=== PATIENT | female | born 2000 | race Hispanic/Latino ===

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

== ENCOUNTER 2018-07-06 20:47 | Emergency (ER) | payer OTHER ==
[~2018-07-06] VITALS: Ht 149.9 cm; Wt 49.9 kg
--- OUTSIDE RECORDS SUMMARY | ~2018-07-06 | XMS ---
Demographics + + + | Address | [address] | | | [place] [address] | + + + | Home Phone | | + + + | Preferred Language | Unknown | + + + | Marital Status | Never | + + + | Christian Affiliation | Unknown | + + + | Race | Other Race | + + + | Ethnic Group | or | + + + Author + + + | Author | [facility] | + + + | Organization | [facility] | + + + | Address | [facility] [address] | | | [place] [address] | + + + | Phone | | + + + Care Team Providers + + + + | Care Room Service Associate Name | Role | Phone | + + + + | Luzma López PCP | | + + + + | Lizette Hawkins | PreferredProvider | | + + + + Allergies and Adverse Reactions + + +-------+ | Name | Reaction | Notes | + + +-------+ | NO KNOWN DRUG ALLERGIES | | | + + +-------+ Plan of Treatment Not available. Medications +--------+ | Active | +--------+ + [...] | | -Soco, | | | | Bon | + [...] + + | 12/11/2016 12:00 AM | CT HEAD/BRAIN W/DYE | Reviewed | + + + + [...] | | | 999 | | | 2007 | Enter | | Enter [...] | Right | 04/30/ | 06/24/ | | | | 2014 | & | [...] | | [place] | [place] | | [id number] | | N/A | | | Healthcare | Healthcare | | 90 | | | + + + +--------+ +---------+ + | | NTCA | NTCA | | [id number] | | Wednesday, | | | Benefits | | | | | March | | | | | | | | 2011 | + + + +--------+ +---------+ + | | NTCA | NTCA | | [id number] | | N/A | | | Benefits | | | 90 | | | + + + +--------+ +---------+ + | | [place] | [place] | | [id number] | | N/A | | | Health | Value | | 90 | | | | | Care | | | | | | + + + +--------+ +---------+ + History of Encounters + + + + | Visit Date | Visit Type | Provider | + + + + | 12/11/2016 | Day Appt | | + + + + | 12/11/2016 | Day Appt | Luzma IZQUIERDO | + + + + | 06/16/2016 [...]
--- OUTSIDE RECORDS SUMMARY | ~2018-07-06 | XMS ---
Demographics + + + | Address | [address] | | | [place] [address] | + + + | Home Phone [...] | + + + | Address | [facility] [address] | | | [place] [address] | + + + | Phone | | + + + Care Team Providers + + + + | Care Trailer Assembler Name | Role | Phone | + + + + | Ciera Vergara PCP | | + + + + | Lizette Hawkins | Tiasafelizabeth | | + + + + Allergies and Adverse Reactions + + + + | Name | Reaction | Notes | + + + + | NO KNOWN DRUG ALLERGIES | | | + + + + | No Known Food or | | - Sara 01/11/2017 | | Environmental Allergies | | | + + + + Plan of Treatment + + + + + + | Planned | Comments | Planned Date | Planned Time | Plan/Goal | | Activity | | | | | + + + + + + | Urine culture | | 05/10/2017 | 12:00 AM | | | and sensitivity | | | | | + + [...] + + + + + + | Augmentin | 05/10/2017 | 05/20/2017 | take 1 tablet | | | 875-125 mg oral | | | by oral route | | | tablet | | | every 12 hours | | | | | | for 10 days | | + + + + + + +---------+ | | +---------+ + + + + + + | Name | Start Date | Expiration Date | SIG | Comments | + + + + + + | Bactrim DS | 04/21/2017 | 05/01/2017 | take 1 tablet | | | 800-160 mg oral | | | by oral route | | | tablet | | | every 12 hours | | | | | | for 10 days | | + + + + + [...] | | e | | +-----+-----+-----+-----+-----+-----+-----+-----+-----+----+-----+-----+-----+-----+ | 4/2 | 1:4 | | | 72 | 24 | 97. | 101 | | | | | | | | /20 | 8:0 | | | bpm | rpm | 8 F | .75 | | | | | | | | 18 | 0 | | | | | | | | | | | | | | | PM | | | | | | lbs | | | | | | | +-----+-----+-----+-----+-----+-----+-----+-----+-----+----+-----+-----+-----+-----+ | 3/1 | 2:1 | 106 | 68 | 72 | 18 | 98. | 100 | 58. | | 20. | 1.3 | 39. | | | 4/2 | 5:0 | | mmH | bpm | rpm | 1 F | | 4 | | 61 | 7 | 6 % | | | 018 | 0 | mmH | g | | | | lbs | in | | kg/ | m2 | | | | | PM | g | | | | | | | | m2 | | | | +-----+-----+-----+-----+-----+-----+-----+-----+-----+----+-----+-----+-----+-----+ | 12/ | 10: | 102 | 60 | 84 | 16 | 97. | 101 | 58. | | 20. | 1.3 | 45. | 99 | | 5/2 | 46: | | mmH | bpm | rpm | 8 F | | 2 | | 964 | 716 | 5 % | % | | 017 | 00 | mmH | g | | | | lbs | in | | | | | | | | AM | g | | | | | | | | kg/ | m | | | | | | | | | | | | | | m | | | | +-----+-----+-----+-----+-----+-----+-----+-----+-----+----+-----+-----+-----+-----+ | 11/ | 10: [...] | | + + + + | Exercises 1-3 times a week | | - Sara 01/11/2017 | + + + + | In High School | | - [employer] 01/11/2017 | + + + + | Lives [...] Reviewed | + + + + | 01/12/2017 10:59 AM | URINALYSIS NONAUTO W/O | Reviewed | | | SCOPE | | + + + + | 01/12/2017 12:00 AM | URINE BACTERIA CULTURE | Reviewed | + + + + | 04/21/2017 10:47 AM | URINALYSIS NONAUTO W/O | Reviewed | | | SCOPE | | + + + + | 04/21/2017 12:00 AM | URINE BACTERIA CULTURE | Reviewed | + + + + | 05/10/2017 1:50 PM | URINALYSIS NONAUTO W/O | Reviewed | | | SCOPE | | + + + + Results Summary + + + | Date and Description | Results | + + + | 12/31/2016 12:58 PM | Hospital/ER/Urgent Care Diagnosis | | | headaches,fever Hospital/ER/Urgent Care | | | Treatment pyelonephritis | + + + | 01/12/2017 10:59 AM | Glucose. Negative Bilirubin. Negative | | | Ketones Negative Spec Grav 1.020 PH 6.0 | | | Protein Negative Urobilinogen 0.2 Nitrites | | | Negative Leukocyte Est Negative Urine | | | Color yellow Blood Trace, non-hemolyzed | + + + | 01/12/2017 11:03 AM | RESULT #1 01/13/2017 10:07 AM RESULT #1 No | | | growth after overnight incubation. RESULT | | | #2 01/14/2017 08:15 AM RESULT #2 No | | | growth after further incubation. | + + + | 04/21/2017 2:18 PM | Glucose. Negative Bilirubin. Negative | | | Ketones Negative Spec Grav 1.020 PH 7.0 | | | Protein 30+ Urobilinogen 0.2 Nitrites | | | Negative Leukocyte Est Trace Urine Color | | | dark yellow Blood Large 3+ | + + + History Of Immunizations +-------+-------+-------+------+-------+-------+-------+-------+-------+-------+-----+ | Name | [...] Not | Not | 0 | | 141 | | 3+ | [...] | 03/30/ | sanof | PMC | MENAC | [id number] | Intra | Right | 03/30/ | 03/07/ | 136 | | tra | 2011 | i | | TRA | AAA | muscu | | 2011 [...] | 05/07/ | sanof | PMC | MENAC | [id number] | Intra | Right | 05/07/ | 11/21 | 136 | | tra | 2015 | i | | TRA | AA | muscu | Arm | [...] | muscu | Arm | 2015 | 2015 | | | | | [...] | | + + + + | Michael, trunk, three | Mar 30 2011 8:55AM | | + + + + | Well Child Check | Jul 10 2011 8:52AM | | + + + + | Vision Screening | Jul 10 2011 8:52AM | | + + + + | Urinary tract infection | | - [employer]reesia 01/11/2017 | + + + + | Well [...] | | + + + + | Pyelonephritis, acute | Jan 12 2017 10:38AM | | | symptoms resolved | | | + + + + | Urinary Urgency | Apr 21 2017 10:45AM | | + + + + | Dysuria | Apr 21 2017 10:45AM | | + + + + | Urinary Tract Infection | May 10 2017 1:46PM | | + + + + Payers [...] | | United | [place] | | [id number] | | N/A | | | Healthcare | Healthcare | | 76 | | | + + + +--------+ +---------+ + | | NTCA | NTCA | | [id number] | | Wednesday, | | | Benefits | | | | | March | | | | | | | | 2011 | + + + +--------+ +---------+ + | | NTCA | NTCA | | [id number] | | N/A | | | Benefits | | | 90 | | | + + + +--------+ +---------+ + | | [place] | [place] | | [id number] | | N/A | | | Health | Value | | 90 | | | | | Care | | | | | | + + + +--------+ +---------+ + | | United | [place] | | [id number] | | N/A | | | Healthcare | Healthcare | | 90 | | | + + + +--------+ +---------+ + History of Encounters + + + + | Visit Date | Visit Type | Provider | + + + + | 05/10/2017 | Office Visit | Ciera IZQUIERDO | + + + + | 04/21/2017 | Same Day Appt | Ciera Vergara RADIO STATION MANAGER | + + + + | 01/12/2017 | Office Visit | Luzma López RADIO STATION MANAGER | + + + + | 12/11/2016 | Day Appt | | + + + + | 12/11/2016 | Day Appt | Luzma REYNAP | + + + + | 06/16/2016 | Consult | Luzma REYNAP | + + + + | 05/08/2015 | Consult | Luzma REYNAP | + + + + | 07/26/2014 [...]
--- OUTSIDE RECORDS SUMMARY | ~2018-07-06 | XMS ---
Demographics + + + | Address | [address] | | | [place] [address] | + + + | Home Phone | | + + + | Preferred Language | Unknown | + + + | Marital Status | Never | + + + | Anabaptist Affiliation | Unknown | + + + | Race | Other Race | + + + | Ethnic Group | or | + + + Author + + + | Author | [facility] | + + + | Organization | [facility] | + + + | Address | [facility] [address] | | | [place] [address] | + + + | Phone | | + + + Care Team Providers + + + + | Care Engine Watchman Name | Role | Phone | + + + + | Ciera Vergara PCP | | + + + + | Lizette Hawkins | [employer]vasquez | | + + + + Allergies and Adverse Reactions + + + + | Name | Reaction | Notes | + + + + | NO KNOWN DRUG ALLERGIES | | | + + + + | No Known Food or | | - Sara 01/11/2017 | | Environmental Allergies | | | + + + + Plan of Treatment Not available. Medications +--------+ [...] | In High School | | - Sara 01/11/2017 | + [...] | | + + + + | 05/10/2017 12:00 AM | URINE BACTERIA CULTURE | Reviewed | + + + + | 05/17/2017 12:00 AM | URINALYSIS AUTO W/SCOPE | Reviewed | + + + + [...] Blood Large 3+ | + + + | 05/10/2017 1:53 PM | RESULT #1 05/11/2017 10:14 AM RESULT #1 No | | | growth after overnight incubation. RESULT | | | #2 05/12/2017 08:35 AM RESULT #2 50,000 | | | CFU/mL mixed growth. ;Bacteria isolated | | | pro RESULT #2 contaminating ephraim.; | + + + | 05/10/2017 1:59 PM | Glucose. Negative Bilirubin. Negative | | | Ketones Negative Spec Grav 1.020 PH 5.0 | | | Protein Negative Urobilinogen 0.2 Nitrites | | | Negative Leukocyte Est Moderate 2+ Urine | | | Color pale hazy yellow Blood Moderate 2+ | + + + | 06/08/2017 4:24 PM | COLLECTION TYPE CLEAN CATCH COLOR YELLOW | | | CLARITY SLIGHTLYCLOUDY SPECIFIC GRAVITY | | | 1.019 PH 6 PROTEIN NEGATIVE GLUCOSE NORMAL | | | KETONE NEGATIVE BILIRUBIN NEGATIVE | | | BLOOD/HGB NEGATIVE NITRITE NEGATIVE | | | UROBILINOGEN 2.0 LEUK ESTERASE TRACE CASTS | | | NEGATIVE WBC'S 5 RBC'S 2 EPITHELIAL | | | SQUAMOUS 2+ CRYSTALS NEGATIVE BACTERIA | | | NEGATIVE | + + + History Of Immunizations [...] Not | Not | 0 | | 110 | | | 2005 [...] 04/30/ | 09/26/ | 150 | | + | 2014 | i | | ne [...] | 2015 | | | | | paste | [...] | | 150 | | 3+ | 2017 | i | | ne | AA [...] | + + + + | Menactra & UP | Mar 30 2011 8:55AM [...] | Urinary tract infection | | - Sara 01/11/2017 | + [...] 1:46PM | | + + + + | Hematuria | May 17 2017 2:38PM | | + + + + Payers + + + +--------+ +---------+ + | Insurance | Company | Plan Name | Plan | Policy | Policy | Start Date | | Name | Name | | Number | Number | Group | | | | | | | | Number | | + + + +--------+ +---------+ + | | UMR | Umr | | [id number] | | N/A | | | | | | 76 | | | + + + +--------+ +---------+ + | | NTCA | NTCA | | [id number] | | Wednesday, | | | Benefits | | | | | March | | | | | | | | 2011 | + + + +--------+ +---------+ + | | NTCA | NTCA | | [id number] | | N/A | | | Benefits | | | 90 | | | + + + +--------+ +---------+ + | | United | [place] | | [id number] | | N/A | | | Health | Value | | 90 | | | | | Care | | | | | | + + + +--------+ +---------+ + | | United | [place] | | [id number] | | N/A | | | Healthcare | Healthcare | | 90 | | | + + + +--------+ +---------+ + | | United | [place] | | [id number] | | N/A | | | Healthcare | Healthcare | | 76 | | | + + + +--------+ +---------+ + History of Encounters + + + + | Visit Date | Visit Type | Provider | + + + + | 05/10/2017 | Office Visit | Ciera Vergara OPERATIONS INTELLIGENCE | + + + + | 04/21/2017 | Same Day Appt | Ciera Vergara OPERATIONS INTELLIGENCE | + + + + | 01/12/2017 | Office Visit | Luzma REYNAP | + + + + | 12/11/2016 | Same Day Appt | | + + + + | 12/11/2016 | Same Day Appt | Luzma REYNAP | + [...]
--- OUTSIDE RECORDS SUMMARY | ~2018-07-06 | XMS ---
Demographics + + + | Address | [address] | | | [place] [address] | + + + | Home Phone | | + + + | Preferred Language | Unknown | + + + | Marital Status | Never | + + + | Yarsanism Affiliation | Unknown | + + + | Race | Other Race | + + + | Ethnic Group | or | + + + Author + + + | Author | [facility] | + + + | Organization | [facility] | + + + | Address | [facility] | | | [place] [address] | + + + | Phone | | + + + Care Team Providers + + + + | Care Emt B Name | Role | Phone | + [...] | | e | | +-----+-----+-----+-----+-----+-----+-----+-----+-----+----+-----+-----+-----+-----+ | 3/1 | 2:1 | 106 | 68 | 72 | 18 | 98. | 100 | 58. | | 20. | 1.3 | 39. | | | 4/2 | 5:0 | | mmH | bpm | rpm | 1 F | | 4 | | 614 | 671 | 6 % | | | 018 | 0 | mmH | g | | | | lbs | in | | 5 | | | | | | PM | g | | | | | | | | kg/ | m | | | | | | | | | | | | | | m | | | | +-----+-----+-----+-----+-----+-----+-----+-----+-----+----+-----+-----+-----+-----+ | 12/ | 10: | 102 | 60 | 84 | 16 | 97. | 101 | 58. | | 20. | 1.3 | 45. | 99 | | 5/2 | 46: | | mmH | bpm | rpm | 8 F | | 2 | | 96 | 7 | 5 % | % | | 017 | 00 | mmH | g | | | | lbs | in | | kg/ | m2 | | | | | AM | g | | | | | | | | m2 | | | | +-----+-----+-----+-----+-----+-----+-----+-----+-----+----+-----+-----+-----+-----+ | 11/ | 10: | 108 | 70 | 88 | 30 | 98. | 106 | 58. | | 22. | 1.4 | 58. | 99 | | 3/2 | 41: | | mmH | bpm | rpm | 1 F | | 2 | | 001 | 051 | 6 % | % | | 017 | 00 | mmH | g | | | | lbs | in | | 8 | | | | | | AM | g | | | | | | | | kg/ | m | | | | | | | | | | | | | | m | | | | +-----+-----+-----+-----+-----+-----+-----+-----+-----+----+-----+-----+-----+-----+ | 5/9 [...] lbs | 3 | | 744 | 0 | 5 % | | | 012 | 0 | mmH | g | | | | | in | | 8 | m2 | | | | | [...] Large 3+ | + + + | 04/21/2017 2:23 PM | RESULT #1 04/22/2017 12:31 PM RESULT #1 No | | | growth after overnight incubation. RESULT | | | #2 04/23/2017 06:47 AM;50,000 CFU/mL | | | Lactose Fermente RESULT #2 susceptibility | | | to follow. RESULT #3 04/24/2017 08:15 | | | AM;Lactose Associate Dentist identified a RESULT | | | #4 04/24/2017 08:15 AM;10,000 CFU/mL | | | Streptococcus ag RESULT #4 Group B) . | | | Beta-hemolytic streptococci are general | | | RESULT #4 beta-lactam group of | | | antibiotics, includes penicil RESULT #4 | | | Susceptibilites are available upon | | | request. Please RESULT #4 within 5 days of | | | the completed report. ORGANISM | | | Escherichia coli AMPICILLIN <=2 S | | | AMOX/CLAV ACID <=2 S PIPERACILLIN/ | | | TAZOBACTAM <=4 S CEFAZOLIN <=4 S | | | CEFTRIAXONE <=1 S CEFEPIME <=1 S | | | AZTREONAM <=1 S ERTAPENEM <=0.5 S | | | IMIPENEM <=0.25 S MEROPENEM <=0.25 S | | | GENTAMICIN <=1 S CIPROFLOXACIN <=0.25 | | | S LEVOFLOXACIN <=0.12 S TETRACYCLINE <=1 | | | S NITROFURANTOIN 32 S | | | TRIMETHROPRIM/ SULFAMETHOXAZOLE <=20 S | + + + History Of Immunizations [...] 0 | | 999 | | | /1998 [...] | | Not | Not | | 1/1/0 | 999 | | | /1998 | [...] 11/21 | 136 | | tra | 2016 | i | | TRA | AA [...] | | 2015 | & | | lsoan 9 | 39 | muscu | Arm [...] 10:45AM | | + + + + Payers [...] | | United | [place] | | [id number] | | N/A | | | Healthcare | Healthcare | | 76 | | | + + + +--------+ +---------+ + | | NTCA | NTCA | | [id number] | | Wednesday, | | | Benefits | | | | | March | | | | | | | | 2011 | + + + +--------+ +---------+ + | | NTCA | NTCA | | [id number] | | N/A | | | Benefits | | | 90 | | | + + + +--------+ +---------+ + | | [place] | [place] | | [id number] | | N/A | | | Health | Value | | 90 | | | | | Care | | | | | | + + + +--------+ +---------+ + | | United | [place] | | [id number] | | N/A | | | Healthcare | Healthcare | | 90 | | | + + + +--------+ +---------+ + History of Encounters + + + + | Visit Date | Visit Type | Provider | + + + + | 04/21/2017 | Same Day Appt | Ciera IZQUIERDO | + + + + | 01/12/2017 | Office Visit | Luzma IZQUIERDO | + + + + | 12/11/2016 [...]
--- OUTSIDE RECORDS SUMMARY | ~2018-07-06 | XMS ---
Demographics + + + | Address | [address] | | | [place] [address] | + + + | Home Phone | | + + + | Preferred Language | Unknown | + + + | Marital Status | Never | + + + | Episcopal Affiliation | Unknown | + + + | Race | Other Race | + + + | Ethnic Group | or | + + + Author + + + | Author | [facility] | + + + | Organization | [facility] | + + + | Address | [facility] | | | [place] [address] | + + + | Phone | | + + + Care Team Providers + + + + | Care Motor Grader Operator Name | Role | Phone | [...] + + + + + + | Culture urine | | 04/21/2017 | 12:00 AM | | + + + + + [...] ne | AA | muscu | | 2016 | 015 | | | years | [...] | + + + + | Scottie & UP | Mar 30 2011 8:55AM | | + + + + | liset Rodriguez, three | Mar 30 2011 8:55AM | [...] | | [place] | [place] | | [id number] | | N/A | | | Healthcare | Healthcare | | 76 | | | + + + +--------+ +---------+ + | | NTCA | NTCA | | [id number] | | Wednesday, | | | | | | | | March | | | | | | | | 2011 | + + + +--------+ +---------+ + | | NTCA | NTCA | | [id number] | | N/A | | | Benefits | | | 90 | | | + + + +--------+ +---------+ + | | [place] | [place] | | [id number] | | N/A | | | Health | Value | | 90 | | | | | Care | | | | | | + + + +--------+ +---------+ + | | United | [place] | | [id number] | | N/A | | | Healthcare [...] | 12/11/2016 | Day Appt | Luzma IZQUIREDO | + + + + | 06/16/2016 [...]
--- OUTSIDE RECORDS SUMMARY | ~2018-07-06 | XMS ---
Demographics + + + | Address | [address] | | | [place] [address] | + + + | Home Phone | | + + + | Preferred Language | Unknown | + + + | Marital Status | Never | + + + | Jehovah'S Witness Affiliation | Unknown | + + + | Race | Other Race | + + + | Ethnic Group | or | + + + Author + + + | Author | [facility] | + + + | Organization | [facility] | + + + | Address | [facility] [address] | | | [place] [address] | + + + | Phone | | + + + Care Team Providers + + + + | Care Correspondence Specialist Name | Role | Phone | + [...] | | e | | +-----+-----+-----+-----+-----+-----+-----+-----+-----+----+-----+-----+-----+-----+ | 12/ | 10: [...] 1-3 times a week | | - Phrcorkyia 01/11/2017 | + + + + | In High School | | - [employer] 01/11/2017 | + + + + | Lives With | | GraemetyshawnZenon, | | | | Celestina, | | [...] after further incubation. | + + + History Of Immunizations [...] | | | 115 | | | 2008 | Enter | [...] | | | 999 | | | | Enter | | Enter | [...] 2015 | & | | SLOAN | 31 [...] | | | + + + + Payers [...] | | [place] | [place] | | [id number] | | N/A | | | Healthcare | Healthcare | | 90 | | | + + + +--------+ +---------+ + | | NTCA | NTCA | | [id number] | | Wednesday, | | | Benefits | | | | | March | | | | | | | | 2011 | + + + +--------+ +---------+ + | | NTCA | NTCA | | [id number] | | N/A | | | Benefits | | | 90 | | | + + + +--------+ +---------+ + | | [place] | [place] | | [id number] | | N/A | | | Health | Value | | 90 | | | | | Care | | | | | | + + + +--------+ +---------+ + History of Encounters + + + + | Visit Date | Visit Type | Provider | + + + + | 01/12/2017 [...]
--- OUTSIDE RECORDS SUMMARY | ~2018-07-06 | XMS ---
Demographics + + + | Address | [address] | | | [place] [address] | + + + | Home Phone [...] + + + | Address | [facility] [address] | | | [place] [address] | + + + | Phone | | + + + Care Team Providers + + + + | Care Inside Sales Assistant Name | Role | Phone | + [...] Blood Moderate 2+ | + + + History Of Immunizations [...] | | 999 | | ar | /2000 | Enter | | Enter | | [...] + + | Urinary Tract Infection | Apr 2017:46PM | | + + + + Payers [...] | | UMR | Umr | | [id number] | | N/A | | | | | | 76 | | | + + + +--------+ +---------+ + | | NTCA | NTCA | | [id number] | | Wednesday, | | | Benefits | | | | | February | | | | | | | | 2011 | + + + +--------+ +---------+ + | | NTCA | NTCA | | [id number] | | N/A | | | Benefits | | | 90 | | | + + + +--------+ +---------+ + | | [place] | [place] | | [id number] | | N/A | | | Health | Value | | 90 | | | | | Care | | | | | | + + + +--------+ +---------+ + | | United | [place] | | [id number] | | N/A | | | Healthcare | Healthcare | | 90 | | | + + + +--------+ +---------+ + | | United | [place] | | [id number] | | N/A | | | Healthcare | Healthcare | | 76 | | | + + + +--------+ +---------+ + History of Encounters + + + + | Visit Date | Visit Type | Provider | + + + + | 05/10/2017 | Office Visit | Ciera Vergara MEDICAL SCIENTIST | + + + + | 04/21/2017 | Same Day Appt | Ciera Vergara MEDICAL SCIENTIST | + + + + | 01/12/2017 | Office Visit | Luzma López MEDICAL SCIENTIST | + + + + | 12/11/2016 | Same Day Appt | | + + + + | 12/11/2016 | Same Day Appt | Luzma RosadoAntoinette REYNAP | + + + + | 06/16/2016 | Consult | Luzma AlonzoAntoinette REYNAP | + + + + | [...]
--- OUTSIDE RECORDS SUMMARY | ~2018-07-06 | XMS ---
Demographics + + + | Address | [address] | | | [place] [address] | + + + | Home Phone | | + + + | Preferred Language | Unknown | + + + | Marital Status | Never | + + + | Samaritan Affiliation | Unknown | + + + | Race | Other Race | + + + | Ethnic Group | or | + + + Author + + + | Author | [facility] | + + + | Organization | [facility] | + + + | Address | [facility] [address] | | | [place] [address] | + + + | Phone | | + + + Care Team Providers + + + + | Care Title Officer Name | Role | Phone | + [...] | | e | | +-----+-----+-----+-----+-----+-----+-----+-----+-----+----+-----+-----+-----+-----+ | 6/1 | 3:5 | 100 | 60 | 76 | 16 | 98. | 99 | 58. | | 20. | 1.3 | 34. | 98 | | 2/2 | 4:0 | | mmH | bpm | rpm | 7 F | lbs | 5 | | 338 | 614 | 9 % | % | | 018 | 0 | mmH | g | | | | | in | | 6 | | | | | | PM | g | | | | | | | | kg/ | m | | | | | | | | | | | | | | m | | | | +-----+-----+-----+-----+-----+-----+-----+-----+-----+----+-----+-----+-----+-----+ | 4/2 | 1:4 [...] | In High School | | - Amyia 01/11/2017 | + + + + | Lives With | | Mazin Bedolla, | | | | kennethSoco, | | | | DaleCoreyrosa elena | + + + + History of [...] Reviewed | + + + + | 07/20/2017 12:00 AM | CRAFFT Screening | Reviewed | + + + + | 07/20/2017 12:00 AM | BRIEF EMOTIONAL/BEHAV ASSMT | Reviewed | + + + + | 07/20/2017 12:00 AM | URINALYSIS AUTO W/SCOPE | [...] | | NEGATIVE | + + + | 07/20/2017 3:15 PM | COLLECTION TYPE CLEAN CATCH COLOR YELLOW | | | CLARITY CLEAR SPECIFIC GRAVITY 1.014 PH 5 | | | PROTEIN NEGATIVE GLUCOSE NORMAL KETONE | | | NEGATIVE BILIRUBIN NEGATIVE BLOOD/HGB | | | NEGATIVE NITRITE NEGATIVE UROBILINOGEN | | | NORMAL LEUK ESTERASE TRACE CASTS NEGATIVE | | | WBC'S 0 RBC'S 0 EPITHELIAL SQUAMOUS 1+ | | | CRYSTALS NEGATIVE BACTERIA NEGATIVE | + + + History Of [...] 2:38PM | | + + + + | Substance Use Screen | Jul 20 2017 3:40PM | | | (CRAFFT) | | | + + + + | Depression Screen (PHQ-A) | Jul 20 2017 3:40PM | | + + + + | Abnormal urine finding | Jul 20 2017 3:40PM | | + + + + | Weight loss | Jul 20 2017 3:40PM | | + + + + Payers [...] | | UMR | Umr | | [id number] | | N/A | | | | | | 76 | | | + + + +--------+ +---------+ + | | NTCA | NTCA | | [id number] | | Wednesday, | | | Benefits | | | | | March | | | | | | | | 2011 | + + + +--------+ +---------+ + | | NTCA | NTCA | | [id number] | | N/A | | | Benefits | | | 90 | | | + + + +--------+ +---------+ + | | [place] | | [id number] | | N/A | | | Health | Value | | 90 | | | | | Care | | | | | | + + + +--------+ +---------+ + | | United | [place] | | [id number] | | N/A | | | Healthcare | Healthcare | | 90 | | | + + + +--------+ +---------+ + | | United | [place] | | [id number] | | N/A | | | Healthcare | Healthcare | | 76 | | | + + + +--------+ +---------+ + History of Encounters + + + + | Visit Date | Visit Type | Provider | + + + + | 07/20/2017 | Adol LV | | + + + + | 07/20/2017 | Adol LV | Ciera Vergara GLOBAL SAFETY OFFICER | + + + + | 05/10/2017 | Office Visit | Ciera Vergara GLOBAL SAFETY OFFICER | + + + + | 04/21/2017 | Same Day Appt | Ciera Vergara GLOBAL SAFETY OFFICER | + + + + | 01/12/2017 | Office Visit | Luzma López GLOBAL SAFETY OFFICER | + + + + | 12/11/2016 | Same Day Appt | | + + + + | 12/11/2016 | Same Day Appt | Luzma RosadoAntoinette IZQUIERDO | + + + + | 06/16/2016 | Consult | Luzma AlonzoAntoinette IZQUIERDO | + + + + | [...]
--- OUTSIDE RECORDS SUMMARY | ~2018-07-06 | XMS ---
Demographics + + + | Address | [address] | | | [place] [address] | + + + | Home Phone | | + + + | Preferred Language | Unknown | + + + | Marital Status | Never | + + + | Buddhist Affiliation | Unknown | + + + | Race | Other Race | + + + | Ethnic Group | or | + + + Author + + + | Author | [facility] | + + + | Organization | [facility] | + + + | Address | [facility] [address] | | | [place] [address] | + + + | Phone | | + + + Care Team Providers + + + + | Care Fire Control Officer Name | Role | Phone | [...] + + + + + + | Urinalysis | | 05/17/2017 | 12:00 AM | | | (dipstick, with | | | | | | microscopy) | | | | | + + [...] | | Celestina, | | | | Bno | + + + + History of [...] | Urinary tract infection | | - Phrcorkyia 01/11/2017 | + [...] | | UMR | Umr | | [id number] | | N/A | | | | | | 76 | | | + + + +--------+ +---------+ + | | NTCA | NTCA | | [id number] | | Wednesday, | | | Benefits | | | | | March | | | | | | | | 2011 | + + + +--------+ +---------+ + | | NTCA | NTCA | | [id number] | | N/A | | | Benefits | | | 90 | | | + + + +--------+ +---------+ + | | United | [place] | | [id number] | | N/A | | | Health | Value | | 90 | | | | | Care | | | | | | + + + +--------+ +---------+ + | | United | [place] | | [id number] | | N/A | | | Healthcare | Healthcare | | 90 | | | + + + +--------+ +---------+ + | | United | [place] | | [id number] | | N/A | | | Healthcare | Healthcare | | 76 | | | + + + +--------+ +---------+ + History of Encounters + + + + | Visit Date | Visit Type | Provider | + + + + | 05/10/2017 | Office Visit | Ciera Vergara MEDICAL CLAIMS PROCESSOR | + + + + | 04/21/2017 | Same Day Appt | Ciera Harringtonalisson REYNAP | + + + + | 01/12/2017 [...]
--- OUTSIDE RECORDS SUMMARY | ~2018-07-06 | XMS ---
Demographics + + + | Address | [address] | | | [place] [address] | + + + | Home Phone | | + + + | Preferred Language | Unknown | + + + | Marital Status | Never | + + + | Jainism Affiliation | Unknown | + + + | Race | Other Race | + + + | Ethnic Group | or | + + + Author + + + | Author | [facility] | + + + | Organization | [facility] | + + + | Address | [facility] | | | [place] [address] | + + + | Phone | | + + + Care Team Providers + + + + | Care Ticket Collector Or Usher Name | Role | Phone | + [...] #3 04/24/2017 08:15 | | | AM;Lactose Assembly Member identified a RESULT | | | #4 [...] | | United | United | | [id number] | | N/A | | | Healthcare | Healthcare | | 76 | | | + + + +--------+ +---------+ + | | NTCA | NTCA | | [id number] | | Wednesday, | | | Benefits | | | | | March | | | | | | | | 2011 | + + + +--------+ +---------+ + | | NTCA | NTCA | | [id number] | | N/A | | | Benefits | | | 90 | | | + + + +--------+ +---------+ + | | United | [place] | | [id number] | | N/A | | | Health | Value | | 90 | | | | | Care | | | | | | + + + +--------+ +---------+ + | | United | United | | [id number] | | N/A | | | Healthcare [...]
--- OUTSIDE RECORDS SUMMARY | ~2018-07-06 | XMS ---
Demographics + + + | Address | [address] | | | [place] [address] | + + + | Home Phone | | + + + | Preferred Language | Unknown | + + + | Marital Status | Never | + + + | Religion Affiliation | Unknown | + + + | Race | Other Race | + + + | Ethnic Group | or | + + + Author + + + | Author | [facility] | + + + | Organization | [facility] | + + + | Address | [facility] [address] | | | [place] [address] | + + + | Phone | | + + + Care Team Providers + + + + | Care Junior High School Teacher Name | Role | Phone | + [...] 12:00 AM | URINE BACTERIA CULTURE | Returned | + + + + Results Summary [...] Blood Trace, non-hemolyzed | + + + History Of Immunizations [...] | | United | United | | [id number] | | N/A | | | Healthcare | Healthcare | | 90 | | | + + + +--------+ +---------+ + | | NTCA | NTCA | | [id number] | | Wednesday, | | | Benefits | | | | | March | | | | | | | | 2011 | + + + +--------+ +---------+ + | | NTCA | NTCA | | [id number] | | N/A | | | Benefits | | | 90 | | | + + + +--------+ +---------+ + | | United | [place] | | [id number] | | N/A | | | Health [...] 04/30/2014 | Well Child Check | Luzma ZIQUIERDO | + + + + | 07/10/2011 | Well Child Check | Luzma IZQUIERDO | + + + + | 03/30/2011 | Office Visit | Samantha Tan MD | + + + +"
--- OUTSIDE RECORDS SUMMARY | ~2018-07-06 | XMS ---
Demographics + + + | Address | [address] | | | [place] [address] | + + + | Home Phone | | + + + | Preferred Language | Unknown | + + + | Marital Status | Never | + + + | Mu-Ism Affiliation | Unknown | + + + | Race | Other Race | + + + | Ethnic Group | or | + + + Author + + + | Author | [facility] | + + + | Organization | [facility] | + + + | Address | [facility] [address] | | | [place] [address] | + + + | Phone | | + + + Care Team Providers + + + + | Care Transfer Iron Operator Name | Role | Phone | [...] | | UMR | Umr | | [id number] | | N/A | | | | | | 76 | | | + + + +--------+ +---------+ + | | NTCA | NTCA | | [id number] | | Wednesday, | | | Benefits | | | | | March | | | | | | | | 2011 | + + + +--------+ +---------+ + | | NTCA | NTCA | | [id number] | | N/A | | | Benefits | | | 90 | | | + + + +--------+ +---------+ + | | [place] | [place] | | [id number] | | N/A | | | Health | Value | | 90 | | | | | Care | | | | | | + + + +--------+ +---------+ + | | United | [place] | | [id number] | | N/A | | | Healthcare | Healthcare | | 90 | | | + + + +--------+ +---------+ + | | United | [place] | | [id number] | | N/A | | | Healthcare | Healthcare | | 76 | | | + + + +--------+ +---------+ + History of Encounters + + + + | Visit Date | Visit Type | Provider | + + + + | 07/20/2017 | Adol LV | | + + + + | 07/20/2017 | Adol LV | Ciera Vergara COMPENSATION ANALYST | + + + + | 05/10/2017 | Office Visit | Ciera Vergara COMPENSATION ANALYST | + + + + | 04/21/2017 | Same Day Appt | Ciera Vergara COMPENSATION ANALYST | + + + + | 01/12/2017 | Office Visit | Luzma López COMPENSATION ANALYST | + + + + | 12/11/2016 [...]
--- OUTSIDE RECORDS SUMMARY | ~2018-07-06 | XMS ---
Demographics + + + | Address | [address] | | | [place] [address] | + + + | Home Phone | | + + + | Preferred Language | Unknown | + + + | Marital Status | Never | + + + | Restoration Affiliation | Unknown | + + + | Race | Other Race | + + + | Ethnic Group | or | + + + Author + + + | Author | [facility] | + + + | Organization | [facility] | + + + | Address | [facility] [address] | | | [place] [address] | + + + | Phone | | + + + Care Team Providers + + + + | Care Senior Grants Officer Name | Role | Phone | [...] | Not | Not | 0 | 0 | 999 | | | /1998 | [...] Not | | Not | Not | 1/1/0 | | 999 | | | /1998 [...] 04/30/ | 09/26/ | 150 | | | 2014 | i | | ne [...] | | United | United | | [id number] | | N/A | | | Healthcare | Healthcare | | 90 | | | + + + +--------+ +---------+ + | | NTCA | NTCA | | [id number] | | Wednesday, | | | Benefits | | | | | March | | | | | | | | 2011 | + + + +--------+ +---------+ + | | NTCA | NTCA | | [id number] | | N/A | | | Benefits | | | 90 | | | + + + +--------+ +---------+ + | | United | [place] | | [id number] | | N/A | | | Health [...] 12/11/2016 | Same Day Appt | Luzma IZQUIERDO | + [...]
--- OUTSIDE RECORDS SUMMARY | ~2018-07-06 | XMS ---
Demographics + + + | Address | [address] | | | [place] [address] | + + + | Home Phone | | + + + | Preferred Language | Unknown | + + + | Marital Status | Never | + + + | Scientologist Affiliation | Unknown | + + + | Race | Other Race | + + + | Ethnic Group | or | + + + Author + + + | Author | [facility] | + + + | Organization | [facility] | + + + | Address | [facility] [address] | | | [place] [address] | + + + | Phone | | + + + Care Team Providers + + + + | Care Display Designer Outside Name | Role | Phone | + [...] | | UMR | Umr | | [id number] | | N/A | | | | | | 76 | | | + + + +--------+ +---------+ + | | NTCA | NTCA | | [id number] | | Wednesday, | | | Benefits | | | | | March | | | | | | | | 2011 | + + + +--------+ +---------+ + | | NTCA | NTCA | | [id number] | | N/A | | | Benefits | | | 90 | | | + + + +--------+ +---------+ + | | United | [place] | | [id number] | | N/A | | | Health | Value | | 90 | | | | | Care | | | | | | + + + +--------+ +---------+ + | | United | United | | [id number] | | N/A | | | Healthcare | Healthcare | | 90 | | | + + + +--------+ +---------+ + | | United | United | | [id number] | | N/A | | | Healthcare | Healthcare | | 76 | | | + + + +--------+ +---------+ + History of Encounters + + + + | Visit Date | Visit Type | Provider | + + + + | 05/10/2017 | Office Visit | Ciera Harringtonalisson IZQUIERDO | + + + + | 04/21/2017 | Same Day Appt | Ciera Harringtonalisson IZQUIERDO | + + + + | [...]
[~2018-07-06 20:47] MED LIST: LEVOFLOXACIN750 MG PO; SUMATRIPTAN SUC25 MG PO
[2018-07-06] MEDS ORDERED: KEFLEX500 MG PO (22:29)
== END 2018-07-06 22:38 | disposition home or self-care (01) ==
LOC: ED 20:47
DX: N39.0 Urinary tract infection, site not specified (principal); K29.70 Gastritis, unspecified, without bleeding
CPT/HCPCS: 80053; 81001; 83690; 84703; 85025; 96374; 99284-25; J2405

== ENCOUNTER 2019-08-16 17:41 | Emergency (ER) | payer OTHER ==
[~2019-08-16] VITALS: Ht 149.9 cm; Wt 54.4 kg
[~2019-08-16 17:41] MED LIST changes: +KEFLEX500 MG PO
[2019-08-16] MEDS ORDERED: CLARITIN-D 121 EACH PO (18:40)
--- NOTE | 2019-08-16 22:34 | EKG ---
[facility] [address] [facility] [place], [place] [address] Signed Normal sinus rhythm with sinus arrhythmia Normal ECG No previous ECGs available Confirmed by RUTHIE CAIN MD ([id number]) on 08/16/2019 10:34:34 PM Electronically Signed By: RUTHIE CAIN MD 08/16/19 2234 PATIENT NAME: MIKE NIXON Electrocardiogram DATE OF : [birth year] PHYSICIAN: RUTHIE CAIN MD REPORT #: [id number] REPORT IS CONFIDENTIAL AND NOT TO BE RELEASED WITHOUT AUTHORIZATION
== END 2019-08-16 19:47 | disposition home or self-care (01) ==
LOC: ED 17:41
DX: R00.2 Palpitations (principal)
CPT/HCPCS: 80053; 83735; 84439; 84443; 85025; 93005; 93010; 99285-25

== ENCOUNTER 2020-09-29 08:28 | Inpatient (IN) | payer OTHER ==
[~2020-09-29 08:28] MED LIST changes: +CLARITIN-D 121 EACH PO
--- NOTE | 2020-09-29 09:12 | NUR ---
RT COLLECTED COVID 19 SWAB WITH NO COMPLICATIONS. RT USED THE CEPHEID RAPID TEST THROUGH IN HOUSE LAB PER DR REQUEST AT THIS TIME.
--- NOTE | 2020-09-29 09:29 | PR ---
[facility] [address] [facility] [place], [place] [address] Signed Progress Notes IP Datetime Report Generated by CPN: 09/29/2020 09:29 PROGRESS NOTES: [id number] Impression: Normal Progression of Labor; Reassuring Heart Rate; Rupture of Membranes Plan: Continue Present Management; Anesthesia Consult; Anticipate Vaginal Delivery Informed Consent Obtain: Vaginal Delivery VITAL SIGNS: [id number] EXAM: [id number] Dilatation: 6.0 Effacement: 100 Station: -2 MEMBRANES: [id number] Comments: Pt is pleasant 19 yr old w/ IUP @ 38w5d presents to L_D c/o SROM 3 hrs ago followed by contractions increasing in frequency and intensity. uncomplicated. A+, RI, GBS neg. +FM, no vaginal bleeding. SROM per history. EFW 7#3oz FETUS A: [id number] FETUS B: [id number] Signing Physician: Gina White DO Copies: ~ *Electronically Signed* 09/29/20928 GINA WHITE DO PATIENT NAME: MIKE NIXON RJ PROGRESS NOTE DATE OF : 98 PHYSICIAN: GINA WHITE DO RPT #: [id number] REPORT IS CONFIDENTIAL AND NOT TO BE RELEASED WITHOUT AUTHORIZATION
--- NOTE | 2020-09-29 10:02 | PR ---
[facility] [address] [facility] [place] [address] Signed Progress Notes IP Datetime Report Generated by CPN: 09/29/2020 10:02 PROGRESS NOTES: [id number] Impression: Normal Progression of Labor; Reassuring Heart Rate Procedures: Sterile Vag Exam Plan: Continue Present Management; Anticipate Vaginal Delivery Informed Consent Obtain: Vaginal Delivery VITAL SIGNS: [id number] EXAM: [id number] Dilatation: 6.0 Effacement: 100 Station: -2 MEMBRANES: [id number] Comments: Pt seen and examined. Doing well. Comfortable w/ contractions. Will monitor and continue expectant management. FETUS A: [id number] FETUS B: [id number] Signing Physician: Gina White DO Copies: ~ *Electronically Signed* 09/29/20 1002 GINA WHITE DO PATIENT NAME: MIKE NIXON PROGRESS NOTE DATE OF : [birth year] PHYSICIAN: GINA WHITE DO RPT #: [id number] REPORT IS CONFIDENTIAL AND NOT TO BE RELEASED WITHOUT AUTHORIZATION
--- NOTE | 2020-09-29 11:27 | PR ---
[facility] [address] [facility] [place], [place] [address] Signed Progress Notes IP Datetime Report Generated by CPN: 09/29/2020 11:27 PROGRESS NOTES: [id number] Impression: Normal Progression of Labor; Reassuring Heart Rate Procedures: Intrauterine Pressure Catheter; Scalp Electrode; Sterile Vag Exam Plan: Continue Present Management; Anticipate Vaginal Delivery Informed Consent Obtain: Vaginal Delivery; Risks, Benefits and Alternatives Discussed VITAL SIGNS: [id number] EXAM: [id number] Dilatation: 9.0 Effacement: 100 Station: -2 MEMBRANES: [id number] Comments: Called to pt room for prolonged deceleration. Intrauterine rescussitation performed w/ maternal position changes and IV fluid bolus. FSE and IUPC placed w/out difficulty. Clear fluid. Noted signficant change in cervix now 9cm 0 station. Will monitor closely, but anticipate . Discussed indications for or operative vaginal delivery, but again, anticipate FETUS A: [id number] FETUS B: [id number] Signing Physician: Gina White DO Copies: ~ *Electronically Signed* 09/29/20 1127 GINA WHITE DO PATIENT NAME: MIKE NIXON RJ PROGRESS NOTE DATE OF : 98 PHYSICIAN: GINA WHITE DO RPT #: [id number] REPORT IS CONFIDENTIAL AND NOT TO BE RELEASED WITHOUT AUTHORIZATION
--- NOTE | 2020-09-29 12:27 | PR ---
[facility] [address] [facility] [place], [place] [address] Signed Progress Notes IP Datetime Report Generated by CPN: 09/29/2020 12:27 PROGRESS NOTES: [id number] Impression: Normal Progression of Labor; Reassuring Heart Rate Other Impressions: Prolonged decel Procedures: Sterile Vag Exam Plan: Tocolysis Informed Consent Obtain: Vaginal Delivery; Risks, Benefits and Alternatives Discussed VITAL SIGNS: [id number] EXAM: [id number] Dilatation: 9.0 Effacement: 100 Station: -2 MEMBRANES: [id number] Comments: Cx exam per RN Called to pts room for deceleration. Pt had been on hands and knees and was tiring so was rotated to [place], and another deceleration occurred. CTXs still q 1-2 minutes (no augmentation). FHR now recovered in hands/knees and cx unchanged per RN. Will give terbutaline x 1 dose and monitor closely. FETUS A: [id number] FETUS B: [id number] Signing Physician: Gina White DO Copies: ~ *Electronically Signed* 09/29/20 1227 GINA WHITE DO PATIENT NAME: MIKE NIXONEE PROGRESS NOTE DATE OF : 98 PHYSICIAN: GINA WHITE DO RPT #: [id number] REPORT IS CONFIDENTIAL AND NOT TO BE RELEASED WITHOUT AUTHORIZATION
--- NOTE | 2020-09-29 13:48 | PR ---
[facility] [address] [facility] [place], [place] [address] Signed Progress Notes IP Datetime Report Generated by CPN: 09/29/2020 13:48 PROGRESS NOTES: [id number] Impression: Normal Progression of Labor; Reassuring Heart Rate Other Impressions: Slow progress of labor Procedures: Sterile Vag Exam Plan: Augmentation Informed Consent Obtain: Vaginal Delivery; Section Delivery VITAL SIGNS: [id number] EXAM: [id number] Dilatation: 9.0 Effacement: 100 Station: -2 MEMBRANES: [id number] Comments: Pt seen and examined. Doing well; comfortable w/ epidural. Cx unchanged, FHT reassuring (cat 1), and LOP position w/ some caput noted. Slight swelling of the posterior cervix noted. Reviewed position changes w/ RNs, recent tocolysis, and now inadw FETUS A: [id number] FETUS B: [id number] Signing Physician: Gina White DO Copies: ~ *Electronically Signed* 09/29/20 1348 GINA WHITE DO PATIENT NAME: MIKE NIXON PROGRESS NOTE DATE OF : 98 PHYSICIAN: GINA WHITE DO RPT #: [id number] REPORT IS CONFIDENTIAL AND NOT TO BE RELEASED WITHOUT AUTHORIZATION
--- NOTE | 2020-09-29 15:41 | PR ---
[facility] [address] [facility] [place], [place] [address] Signed Progress Notes IP Datetime Report Generated by CPN: 09/29/2020 15:41 PROGRESS NOTES: [id number] Impression: Arrest of Dilatation/Descent Other Impressions: Cervical edema Procedures: Sterile Vag Exam Plan: Deliver- Section Informed Consent Obtain: Section Delivery; Risks, Benefits and Alternatives Discussed VITAL SIGNS: [id number] EXAM: [id number] Dilatation: 6.0 Effacement: 100 Station: -2 MEMBRANES: [id number] Comments: Pt seen and examined. Doing well. Comfortable w/ epidural. Contractions adequate. On exam, cervical edeman noted and now cx 6cm 70%. Significant caput noted. Discussed indication for delivery at this point due to failure to progress. Pt understands and agrees. Ancef 2 g IV. OR crew and Dr. Leonard notified and en route. Stop pit. Review C/S in detail including risks/benefits/alternatives and implications on future pregnancies. All questions answered ; consents signed. FETUS A: [id number] FETUS B: [id number] Signing Physician: Gina White DO Copies: ~ *Electronically Signed* 09/29/20 1540 GINA WHITE DO PATIENT NAME: MIKE NIXON PROGRESS NOTE DATE OF : 98 PHYSICIAN: GINA WHITE #: [id number] REPORT IS CONFIDENTIAL AND NOT TO BE RELEASED WITHOUT AUTHORIZATION
--- NOTE | 2020-09-29 17:19 | NUR ---
09/29/201718 Deborah Pruitt 1711: PT ARRIVES TO PACU WITH LOOM CHANGER, MICHELLE VILLA, AND DEBORAH VILLA.
--- NOTE | 2020-09-30 08:57 | PR ---
[facility] [address] [facility] [place], [place] [address] Signed PP Progress Notes Datetime Report Generated by CPN: 09/30/2020 08:57 SUBJECTIVE: [id number] Pain: Within Normal Limits Nausea/Vomiting: Denies Flatus: Yes Bowel Movement: No Vital Signs: [id number] Vital Signs: Reviewed; Within Normal Limits EXAM: Ongoing Cardiovascular: Normal Respiratory: Normal Abdomen/Uterus: Normal Lochia: Normal Vulva/Perineum: Normal Extremities: Normal Incision: Normal Progress: Normal Exam Comments: Fundus firm U-2 nontender. Incision well healing IMPRESSION/PLAN/PROCEDURES: [id number] Impression: Normal Progression Plan: Continue Present Management Progress Notes: Pt seen and examined. Doing well. Ambulating and tolerating full diet. Pain and lochia minimal. well. No fevers / chills or other concerns. Anticipate d/c home tomorrow Signing Physician: Gina White DO Copies: ~ *Electronically Signed* 09/30/20 0857 GINA WHITE DO PATIENT NAME: MIKE NIXON RJ PROGRESS NOTE DATE OF : 98 PHYSICIAN: GINA WHITE DO RPT #: [id number] REPORT IS CONFIDENTIAL AND NOT TO BE RELEASED WITHOUT AUTHORIZATION
--- NOTE | 2020-10-01 09:26 | PR ---
[facility] [address] [facility] [place], [place] [address] Signed PP Progress Notes Datetime Report Generated by CPN: 10/01/2020 09:26 SUBJECTIVE: [id number] Pain: Within Normal Limits Nausea/Vomiting: Denies Flatus: Yes Bowel Movement: Yes Vital Signs: [id number] Vital Signs: Reviewed; Within Normal Limits EXAM: Met Cardiovascular: Normal Respiratory: Normal Abdomen/Uterus: Normal Lochia: Normal Vulva/Perineum: Not Done Breasts: Not Done CVA Tenderness: Normal Extremities: Normal Incision: Normal Progress: Normal Exam Comments: Fundus firm U-2 nontender. Incision well healing w/ kareem in place IMPRESSION/PLAN/PROCEDURES: [id number] Impression: Normal Progression Plan: Remove [place]; Discharge Progress Notes: Pt seen and examined. Doing well. Ambulating, voiding, and tolerating full diet. Pain and lochia minimal. well. No fevers/chills other concerns. Desires d/c home today. Reviewed d/c instructions in detail Signing Physician: Gina White DO Copies: ~ *Electronically Signed* 10/01/20 09 GINA WHITE DO PATIENT NAME: MIKE NIXON PROGRESS NOTE DATE OF : 98 PHYSICIAN: GINA WHITE DO RPT #: [id number] REPORT IS CONFIDENTIAL AND NOT TO BE RELEASED WITHOUT AUTHORIZATION
--- NOTE | 2020-10-16 06:43 | OR ---
[facility] [address], [place] [address] Signed DATE OF OPERATION: 09/29/2020 SURGEON: Gina White DO PREOPERATIVE DIAGNOSES: 1. Term with spontaneous labor. 2. Failure to progress. PROCEDURES PERFORMED: Primary low transverse delivery. ANESTHESIA: Epidural converted to general anesthetic. ENVIRONMENTAL CONSULTANT: Lizzie Leonard D.O. ESTIMATED BLOOD LOSS: 600 mL. COMPLICATIONS: None. DRAINS: Madison. FINDINGS: Delivery of a viable male in the KAL position with nuchal cord loose x1. Normal uterus, tubes, and ovaries. Male weighing 7 pounds 4 ounces with Apgars of 8 and 9. INDICATIONS: Ms. Austin is a pleasant 19-year-old, G1, P0, female, who presented to Labor and Delivery, following spontaneous rupture of membranes and contractions increasing in frequency and intensity. She was admitted at 6 cm and received a labor epidural. She had two prolonged decelerations throughout her labor that were resolved with position changes in intrauterine resuscitation. The patient progressed to 9 cm and then made no progression beyond. Oxytocin augmentation was performed and after nearly 4 hours at 9 cm, the cervix became swollen without progress noted. Decision was made to proceed with primary low transverse delivery. Risks, benefits, and alternatives were Electronically Signed By: GINA WHITE DO 10/16/20 0643 PATIENT NAME: CHELSEA ALEXANDERMIKE RJ OPERATIVE REPORT DATE OF : [birth year] REPORT #: [id number] PHYSICIAN: GINA WHITE DO PCP: PHILIP MULLIGAN PA-C REPORT IS CONFIDENTIAL AND NOT TO BE RELEASED WITHOUT AUTHORIZATION [facility] [address], [place] [address] Signed discussed in detail with the patient. The patient understands and wishes to proceed with the procedure. TECHNIQUE: The patient was taken to the operating room, where a time-out was performed to confirm correct patient and correct procedure. Labor epidural was bolused. The patient received Ancef 2 g preoperatively and no preoperative heparin was indicated. A Madison catheter had been previously inserted and IUPC and FSE were removed. The patient was then prepped and draped with a bump under the right hip. Adequacy of epidural was then tested and the patient had little to no effect from the epidural. Apparently, the epidural catheter had been pulled back several cm during position changes throughout her labor. Decision was made to proceed with general anesthetic. General anesthetic was made and a Pfannenstiel incision was made with a surgical scalpel and carried down to the fascia. The fascia was incised in the midline and fascial incision was extended bilaterally using Landaverde scissors. The fascia was grasped with Ulysses's, elevated, and the underlying rectus muscle was dissected off bluntly and sharply. Rectus was divided in the midline. The peritoneum was entered bluntly. Peritoneal incision was extended bilaterally using blunt dissection. Lower uterine segment was identified and Florencio self-retractor was placed. Hysterotomy was performed with a surgical scalpel and hysterotomy was extended bilaterally with blunt dissection. Clear amniotic fluid was noted. vertex was easily elevated into the maternal abdomen, delivered with the assistance of fundal pressure. Nuchal cord x1 loose was noted and was reduced without difficulty. Clear amniotic fluid was noted. The was vigorous and cried upon delivery and was handed off to the waiting pediatric team after the cord was doubly clamped and cut. Cord blood was obtained for routine analysis. The placenta was manually expressed, intact with a centrally inserted three-vessel cord. The uterus was initially noted to be quite boggy. The uterine pressure was held and Pitocin was administered and uterine tone improved. Bleeding was quite minimal. Hysterotomy was then repaired in two layers using 0 Monocryl, first with a running locked stitch and the second with a vertical imbricating stitch. Excellent hemostasis was appreciated and uterine tone was much improved. The pelvis was irrigated and made hemostatic with judicious use of Bovie electrocautery. The Florencio self-retractor was removed and ACell sheet was applied to the lower uterine segment. The peritoneum was then reapproximated using 2-0 Vicryl in a running nonlocked manner. Rectus was irrigated, examined, made hemostatic with the Bovie electrocautery, and gently plicated in the midline using interrupted sutures of 0 Vicryl. ACell powder was applied to the rectus sheath. The fascia was then reapproximated using 0 Vicryl in a running nonlocked manner. Due to small subcuticular thickness. Skin was then closed after ensuring subcuticular hemostasis. Skin was reapproximated with surgical kareem. The uterus was then Crede'd for scant amount of blood. The patient was then taken to the PACU in good and stable condition. Sponge, needle, and instrument count was correct x2 at the end of the procedure. Dr. Leonard was present and participated in all portions of the procedure. Electronically Signed By: GINA WHITE DO 10/16/20 0643 PATIENT NAME: MIKE NIXON OPERATIVE REPORT DATE OF : [birth year] REPORT #: [id number] PHYSICIAN: GINA WHITE DO PCP: PHILIP MULLIGAN PA-C REPORT IS CONFIDENTIAL AND NOT TO BE RELEASED WITHOUT AUTHORIZATION [facility] [address] [place], [place] [address] Signed DO SERGEI Crooks/ALPHONSO /[id number] Copies: ~ Electronically Signed By: GINA WHITE DO 10/16/20 0643 PATIENT NAME: MIKE NIXON OPERATIVE REPORT DATE OF : [birth year] REPORT #: [id number] PHYSICIAN: GINA WHITE DO PCP: PHILIP MULLIGAN PA-C REPORT IS CONFIDENTIAL AND NOT TO BE RELEASED WITHOUT AUTHORIZATION
== END 2020-10-01 11:00 | disposition home or self-care (01) | DRG 788 ==
LOC: FBCO 08:28 → FBC 08:38
PROVIDERS: ADMIT Obstetrics & Gynecology; ATTEND Obstetrics & Gynecology
PROC: 3E0T3BZ Introduction of Anesthetic Agent into Peripheral Nerves and Plexi, Percutaneous Approach (ICD-10-PCS; 2020-09-29)
PROC: 10D00Z1 Extraction of Products of Conception, Low, Open Approach (ICD-10-PCS; principal; 2020-09-29 16:22)
DX: O62.1 Secondary uterine inertia (principal); Z37.0 Single live birth; O69.81X0 Labor and delivery complicated by cord around neck, without compression, not applicable or unspecified; O76 Abnormality in fetal heart rate and rhythm complicating labor and delivery; Z3A.38 38 weeks gestation of pregnancy; O34.43 Maternal care for other abnormalities of cervix, third trimester
CPT/HCPCS: 01961; 64448; 76942; 85027; C9803; J0131; J0330; J0690; J1100; J1650; J1885; J2001; J2274; J2370; J2405; J2590; J2704; J2795; J3010; J3105; J7121; U0003